=== PATIENT | female | born 1960 | race American Indian/Alaskan Native ===

== ENCOUNTER 2025-03-11 19:12 | Emergency (ER) | payer BC, MEDICARE ==
[2025-03-11] MEDS ORDERED: Sodium Chloride 0.9% 10 ML Syringe FLUSH PRN (19:41)
[2025-03-11 19:54] LABS: MEAN PLATELET VOLUME 9.3 fL (6.0-10.0); PLATELET COUNT,PLT 308.0 K/uL (150-500); RED BLOOD CELL COUNT 4.69 M/uL (3.80-5.80); RED CELL DISTRIBUTION WIDTH 13.9 % (11.0-16.0); WHITE BLOOD CELL COUNT,WBC 12.9 K/uL (4.0-11.0)
[2025-03-11 20:01] LABS: A/G RATIO 1.2 (0.8-2.0); ALANINE AMINOTRANSFERASE,ALT 30.0 U/L (12-78); ASPARTATE AMNIOTRANSFERASE,AST 20.0 U/L (15-37); BILIRUBIN TOTAL 0.4 mg/dL (0.0-1.0); BLOOD UREA NITROGEN,BUN 8.0 mg/dL (8-26); CARBON DIOXIDE,CO2 25.8 mmol/L (21.0-32.0); CHLORIDE,CL 103.0 mmol/L (98-107); CREATININE 0.64 mg/dL (0.55-1.02); EST CRCL DRUG DOSING (CG) 88.4 mL/min; ESTIMATED GFR 98.0 mL/min (>60); GLUCOSE RANDOM 84.0 mg/dL (74-100); POTASSIUM,K 3.4 mmol/L (3.5-5.1); PROTEIN TOTAL,TP 7.6 g/dL (6.4-8.2); SODIUM,NA 140.0 mmol/L (136-145); TROPONIN I HIGH SENSITIVITY 6.8 pg/ml (<=60.4)
[2025-03-11] MEDS: GI Cocktail Oral Solution 30 ML PO ONE (20:27)
== END 2025-03-11 21:00 | disposition home or self-care (01) ==
LOC: LB.ED 19:12
DX: K20.90 Esophagitis, unspecified without bleeding (principal); R07.89 Other chest pain; I10 Essential (primary) hypertension; E78.00 Pure hypercholesterolemia, unspecified; E11.9 Type 2 diabetes mellitus without complications; E03.9 Hypothyroidism, unspecified; F17.200 Nicotine dependence, unspecified, uncomplicated; Z91.040 Latex allergy status; Z79.4 Long term (current) use of insulin; Z79.84 Long term (current) use of oral hypoglycemic drugs; Z79.890 Hormone replacement therapy; Z79.899 Other long term (current) drug therapy
CPT/HCPCS: 36415; 71045; 80053; 84484; 85027; 85379; 93005; 99285; A9270; 93010; 99283